=== PATIENT | female | born 1990 | race Caucasian/White ===

== ENCOUNTER 2016-07-01 09:41 | Emergency (ER) | payer OTHER ==
[2016-07-01] MEDS ORDERED: ONDANSETRON HCL 4 MG/2 ML VIAL ONE (10:10)
[2016-07-01] MEDS ORDERED: NORMAL SALINE 1,000 ML IV ONE (10:10)
[2016-07-01 10:30] LABS: BASOPHIL# 0.1 X 10^3uL (0.0-0.1); BASOPHILS 0.9 % (0.0-2.0); HEMATOCRIT 42.9 % (36.0-48.0); HEMOGLOBIN 14.5 g/dL (12.0-16.0); LYMPHOCYTES 13.6 % (20.0-40.0); LYMPHOCYTES# 1.6 X 10^3uL (0.8-3.8); MEAN CELL VOLUME 87.6 fL (80.0-100.0); MEAN CORPUS. HGB CONCENTRATION 33.8 g/dL (32.0-36.0); MEAN CORPUSCULAR HEMOGLOBIN 29.6 pg (29.0-35.0); MEAN PLATELET VOLUME 9.3 fL (7.4-10.4); MONOCYTES 3.9 % (2.0-10.0); MONOCYTES# 0.5 X 10^3uL (0.2-1.0); NEUTROPHILS 81.6 % (54.0-75.0); NEUTROPHILS# 9.6 X 10^3uL (2.6-6.7); PLATELET COUNT 232 X 10^3uL (130-440); RED CELL DISTRIBUTION WIDTH 15.5 % (11.5-14.5); WHITE BLOOD COUNT 11.8 X 10^3uL (3.9-10.7)
[2016-07-01 10:38] LABS: BLOOD UREA NITROGEN 9 mg/dL (7-17); CALCIUM 9.3 mg/dL (8.4-10.2); CHLORIDE 104 mmol/L (98-107); CREATININE 0.5 mg/dL (0.5-1.0); EST GLOMERULAR FILTRATION RATE > 60 mL/min; GLUCOSE 101 mg/dL (70-100); POTASSIUM 3.9 mmol/L (3.5-5.1); SODIUM 142 mmol/L (137-145)
--- NOTE | 2016-07-01 11:15 | ER NURSING DOCUMENTATION ---
Nurse's Notes [facility] Name:Miladis May Age:26 yrs Sex:Female :1990 Arrival Date:07/01/2016 Time:09:41 Bed3 Private MD: Diagnosis:Gastroenteritis; Viral;Nausea - Vomiting (not ) Presentation: 07/01 09:56 Presenting complaint: Patient states: Nausea, vomiting and lower abd pain. Transition lp of care: Home. 09:56 Acuity: SUKI 3 lp 09:56 Method Of Arrival: Private Vehicle lp 09:56 Notified ED Physician of Dr. Barry notified. lp Triage Assessment: 10:26 General: Appears in no apparent distress, Behavior is appropriate for age. Pain: Denies lp pain. EENT: No deficits noted. Neuro: No deficits noted. Cardiovascular: No deficits noted. Respiratory: No deficits noted. GI: Reports intolerance of fluids, intolerance of food, nausea, vomiting, Denies pain. : Derm: No deficits noted. Musculoskeletal: No deficits noted. Historical: - Allergies: PENICILLINS; - Home Meds: 1. None - PMHx: Induced Hypertension; - PSHx: [place] teeth removal; - Tetanus: < 10 years. - Ebola Screening: : Patient negative for fever greater than or equal to 101.5 degrees Fahrenheit, and additional compatible Ebola Virus Disease symptoms. Patient denies exposure to infectious person. Patient denies travel to an Ebola-affected area in the 21 days before illness onset. . - Immunization history: Flu Vaccine None. - Social history: Smoking status: Patient states was never smoker of tobacco. Screenin:28 Infectious Disease Risk None. Abuse screen: Denies threats or abuse. Denies injuries lp from another. Nutritional screening: No deficits noted. Assessment: 10:27 GI: Abdomen is flat, non- distended Bowel sounds present X 4 quads. Reports intolerance lp of fluids, intolerance of food, nausea, vomiting. Vital Signs: 10:15 BP 116 / 71; Pulse 82; Resp 16; Temp 98.1(O); Pulse Ox 95% on R/A; Weight 45.36 kg; lp Height 5 ft. 0 in. (152.40 cm); Pain 0/10; 11:02 BP 103 / 72; Pulse 57; Resp 16; Pulse Ox 93% on R/A; lp 10:15 Body Mass Index 19.53 (45.36 kg, 152.40 cm) lp ED Course: 09:44 Patient arrived in ED. lm3 09:48 Albert Barry MD is Attending Physician. cd 09:56 Jessica Jones RN is Primary Nurse. lp 09:[address] Barry notified. lp 09:57 Triage completed. lp 10:16 Inserted peripheral IV: 20 gauge in right antecubital area and blood collected. lp 10:28 Valuables Remains with patient Patient has correct armband on for positive lp identification. Placed in gown. Bed in low position. Call light in reach. Side rails up X 1. 11:04 Discontinued IV bleeding controlled, pressure dressing applied. lp 11:06 Zakia Zhao DO is Referral Physician. cd Administered Medications: 10:15 Drug: NS 0.9% 1000 ml; Route: IV; Rate: bolus; Site: right antecubital; lp 11:02 Follow up: IV Status: Completed infusion; IV Intake: 1000ml lp 10:29 Not Given (Patient Refused): Zofran 4 mg IVP once over 2 mins lp 10:54 Drug: Zofran 4 mg; Route: IVP; Infused Over: 2 mins; Site: right antecubital; lp 11:02 Follow up: Response: No adverse reaction; Nausea is decreased lp Point of Care Testing: Urine Dip: 10:21 pH: 7.0; ; Specific [place]: 1.025; Ketones: Trace; Glucose: Negative; Protein: sj Positive (++); Leukocytes: Negative; Nitrite: Negative ; Blood: Negative; Bilirubin: Negative ; Urobilinogen: Normal Intake: 11:02 IV: 1000ml; Total: 1000ml. lp Outcome: 11:03 Discharged to home ambulatory. lp 11:03 Condition: improved 11:03 Instructed on discharge instructions, follow up and referral plans. medication usage. 11:07 Discharge ordered by . cd 11:14 Patient left the ED. lp 05 14:15 Discharge F/U Call: Unable to reach: left voicemail: sj Signatures: Jessica Jones, RN RN lp Albert Barry MD MD cd Janzen, Sarah sj McKibbon-Moore, Lisa lm3
--- NOTE | 2016-07-01 11:15 | ER PHYSICIAN DOCUMENTATION ---
Physician Documentation [facility] Name:Miladis May Age:26 yrs Sex:Female :1990 Arrival Date:07/01/2016 Time:09:41 Bed3 Private MD: Albert Li Disposition: 07/01/16 11:07 Discharged to Home/Self Care. Impression: Gastroenteritis; Viral, Nausea - Vomiting (not ). - Condition is Good. - Discharge Instructions: GASTROENTERITIS, Viral [8y-Adult]. - Prescriptions for Zofran 4 mg Oral - take 1 tablet by ORAL route every 6 hours; 6 tablet. - Medical Reconciliation form form. - Follow up: Zakia Zhao DO; When: 4- 6 days; Reason: Recheck today's complaints, Continuance of care. - Problem is new. - Symptoms are resolved. HPI: 07/01 10:00 This 26 yrs old Female presents to ER via Private Vehicle with complaints of cd Vomiting, diarrhea and low abdominal cramps. 10:00 The patient presents to the emergency department with nausea, that is mild, with cd vomiting, a few times, described as clear fluid, with diarrhea, a few times, described as watery, with associated abdominal pain, of the right lower quadrant and left lower quadrant, described as crampy, and does not radiate. Onset: The symptom(s)/episode began/occurred this morning. Possible causes: unknown. Associated signs and symptoms: Pertinent positives: abdominal pain, anorexia, diarrhea, nausea, vomiting, Pertinent negatives: dysuria, fever, GI bleeding. Severity of symptoms: At their worst the symptoms were mild in the emergency department the symptoms are unchanged. The patient has not experienced similar symptoms in the past. LMP March 2016...she states her periods are irregular and usually 40 days apart.. Historical: - Allergies: PENICILLINS; - Home Meds: 1. None - PMHx: Induced Hypertension; - PSHx: [place] teeth removal; - Tetanus: < 10 years. - Ebola Screening: : Patient negative for fever greater than or equal to 101.5 degrees Fahrenheit, and additional compatible Ebola Virus Disease symptoms. Patient denies exposure to infectious person. Patient denies travel to an Ebola-affected area in the 21 days before illness onset. . - Immunization history: Flu Vaccine None. - Social history: Smoking status: Patient states was never smoker of tobacco. ROS: 10:30 Constitutional: Positive for poor PO intake, Negative for chills, fever. cd 10:30 Abdomen/GI: Positive for abdominal pain, nausea, vomiting, diarrhea, anorexia, Negative for abdominal distension, hematemesis, black/tarry stool, rectal bleeding. 10:30 : Negative for urinary symptoms, urinary frequency, pelvic pain, flank pain. 10:30 All other systems are negative. Exam: 10:30 ENT: Nares patent. No nasal discharge, no septal abnormalities noted. Tympanic cd membranes are normal and external auditory canals are clear. Oropharynx with no redness, swelling, or masses, exudates, or evidence of obstruction, uvula midline. Mucous membranes moist. 10:30 Neck: Trachea midline, no thyromegaly or masses palpated, and no cervical cd lymphadenopathy. Supple, full range of motion without nuchal rigidity, or vertebral point tenderness. No Meningismus. Back: No spinal tenderness. No costovertebral tenderness. Full range of motion. 10:30 MS/ Extremity: Pulses equal, no cyanosis. Neurovascular intact. Full, normal range of motion. 10:30 Constitutional: The patient appears alert, awake, non-diaphoretic, non-toxic, well developed, well hydrated, well nourished, in obvious distress, mildly distressed. 10:30 Cardiovascular: Rate: normal, Rhythm: regular, Pulses: no pulse deficits are appreciated, Heart sounds: normal, Edema: is not appreciated. 10:30 Respiratory: the patient does not display signs of respiratory distress, Respirations: normal, no acute changes, Breath sounds: are normal, clear throughout. 10:30 Abdomen/GI: Inspection: abdomen appears normal, Bowel sounds: normal, Palpation: abdomen is soft and non-tender, mild abdominal tenderness, in the left lower quadrant, mass, is not appreciated, rebound tenderness, is not appreciated, voluntary guarding, is not appreciated, involuntary guarding, is not appreciated, no appreciated organomegaly, Indicators: McBurney's point is not tender, Yepez's sign is negative. 10:30 Skin: Exam negative for acute changes. 10:30 Neuro: Exam negative for acute changes. 10:30 Abdomen/GI: The patient has NO PAIN over McBurney's Point and has NO Heel Tap pain to cd the right foot.. Vital Signs: 10:15 BP 116 / 71; Pulse 82; Resp 16; Temp 98.1(O); Pulse Ox 95% on R/A; Weight 45.36 kg; lp Height 5 ft. 0 in. (152.40 cm); Pain 0/10; 11:02 BP 103 / 72; Pulse 57; Resp 16; Pulse Ox 93% on R/A; lp 10:15 Body Mass Index 19.53 (45.36 kg, 152.40 cm) lp MDM: 09:48 Patient medically screened. cd 09:52 Data interpreted: Pulse oximetry: on room air is 93 %. Interpretation: normal. cd Counseling: I had a detailed discussion with the patient and/or guardian regarding: the historical points, exam findings, and any diagnostic results supporting the discharge/admit diagnosis, lab results, the need for outpatient follow up, for a recheck, with the patient's primary care provider, to return to the emergency department if symptoms worsen or persist or if there are any questions or concerns that arise at home. Response to treatment: the patient's symptoms have markedly improved after treatment, the patient's condition has returned to base line, patient is well hydrated. and as a result, I will discharge patient. 10:30 Differential diagnosis: Nonspecific abd pain, diverticulitis, viral gastroenteritis, cd gastroenteritis. 10:50 Data reviewed: vital signs, nurses notes, old medical records, lab test result(s), and cd as a result, I will discharge patient. 07/01 10:39 Order name: CBC AUTO DIF, MDIF/RMOR IF IND; Complete Time: 10:53 EDMS 07/01 10:52 Interpretation: Normal Except: WHITE BLOOD COUNT 11.8; NEUTROPHILS 81.6; Elevated WBC cd with Left shift. 05 10:39 Order name: BASIC METABOLIC PANEL; Complete Time: 10:53 EDMS 07/01 10:53 Interpretation: Normal. cd 07/01 10:45 Order name: HCG, SERUM; Complete Time: 10:53 EDMS 07/01 10:53 Interpretation: Normal. cd Dispensed Medications: 10:15 Drug: NS 0.9% 1000 ml; Route: IV; Rate: bolus; Site: right antecubital; lp 11:02 Follow up: IV Status: Completed infusion; IV Intake: 1000ml lp 10:29 Not Given (Patient Refused): Zofran 4 mg IVP once over 2 mins lp 10:54 Drug: Zofran 4 mg; Route: IVP; Infused Over: 2 mins; Site: right antecubital; lp 11:02 Follow up: Response: No adverse reaction; Nausea is decreased lp Point of Care Testing: Urine Dip: 10:21 pH: 7.0; ; Specific [place]: 1.025; Ketones: Trace; Glucose: Negative; Protein: sj Positive (++); Leukocytes: Negative; Nitrite: Negative ; Blood: Negative; Bilirubin: Negative ; Urobilinogen: Normal Signatures: Jessica Jones RN RN lp Albert Barry MD MD cd
== END 2016-07-01 11:15 | disposition home or self-care (01) ==
LOC: ER 09:41
DX: A08.4 Viral intestinal infection, unspecified (principal)
CPT/HCPCS: 80048; 84703; 85025; 96361; 96374; 99284; J2405; J7030